=== PATIENT | male | born 1995 | race African-American/Black ===

== ENCOUNTER 2018-01-27 15:44 | Emergency (ER) | payer MEDICAID ==
[~2018-01-27] VITALS: Ht 172.7 cm; Wt 71.5 kg
[2018-01-27 15:48] VITALS: BP 151/79
[2018-01-27 16:22] LABS: MICROSCOPIC AUTO
[2018-01-27 16:25] LABS: CULTURE INDICATED? YES
== END 2018-01-27 17:03 | disposition home or self-care (01) ==
LOC: ED 16:50
DX: R36.1 Hematospermia (principal); F90.9 Attention-deficit hyperactivity disorder, unspecified type
CPT/HCPCS: 81001; 87086; 87491; 87591; 99284

== ENCOUNTER 2018-01-27 20:44 | Emergency (ER) | payer MEDICAID ==
[~2018-01-27] VITALS: Ht 172.7 cm; Wt 71.6 kg
[2018-01-27 21:14] VITALS: BP 126/83
== END 2018-01-27 21:26 | disposition home or self-care (01) ==
LOC: ED 21:22
DX: R31.29 Other microscopic hematuria (principal); R36.1 Hematospermia; F90.9 Attention-deficit hyperactivity disorder, unspecified type; F17.200 Nicotine dependence, unspecified, uncomplicated
CPT/HCPCS: 99281

== ENCOUNTER 2018-03-06 10:24 | Emergency (ER) | payer MEDICAID ==
[~2018-03-06] VITALS: Ht 172.7 cm; Wt 72.2 kg
[2018-03-06 10:25] VITALS: BP 128/73
[2018-03-06] MEDS ORDERED: HYDROcodone/APAP 5/325 TABLET ONE (10:52)
[2018-03-06] MEDS ORDERED: HYDROcodone/APAP 5/325 TABLET PO ONE (11:00)
== END 2018-03-06 11:08 | disposition home or self-care (01) ==
LOC: ED 11:00
DX: K02.9 Dental caries, unspecified (principal); K08.89 Other specified disorders of teeth and supporting structures
CPT/HCPCS: 99283

== ENCOUNTER 2018-03-30 10:40 | Emergency (ER) | payer SELFPAY ==
[~2018-03-30] VITALS: Ht 172.7 cm; Wt 72.1 kg
[2018-03-30 10:48] VITALS: BP 122/79
[2018-03-30] MEDS ORDERED: IBUPROFEN 200 MG TABLET ONE (11:16)
[2018-03-30] MEDS ORDERED: METHOCARBAMOL 750 MG TABLET ONE (11:16)
[2018-03-30] MEDS ORDERED: METHOCARBAMOL 750 MG TABLET PO ONE (11:30)
[2018-03-30] MEDS ORDERED: IBUPROFEN 200 MG TABLET PO ONE (11:30)
== END 2018-03-30 11:51 | disposition home or self-care (01) ==
LOC: ED 11:38
DX: S39.012A Strain of muscle, fascia and tendon of lower back, initial encounter (principal); V49.49XA Driver injured in collision with other motor vehicles in traffic accident, initial encounter; Y93.89 Activity, other specified; Y99.8 Other external cause status; Y92.89 Other specified places as the place of occurrence of the external cause
CPT/HCPCS: 72110; 99284

== ENCOUNTER 2018-07-04 01:09 | Emergency (ER) | payer MEDICAID ==
[~2018-07-04] VITALS: Ht 172.7 cm; Wt 70.0 kg
[2018-07-04 01:11] VITALS: BP 127/84
[2018-07-04] MEDS ORDERED: CEFTRIAXONE 250 MG IM ONE (01:30)
[2018-07-04] MEDS ORDERED: AZITHROMYCIN 500 MG TABLET PO ONE (01:30)
[2018-07-04] MEDS ORDERED: CEFTRIAXONE 250 MG ONE (01:33)
[2018-07-04] MEDS ORDERED: AZITHROMYCIN 500 MG TABLET ONE (01:33)
[2018-07-04 01:54] LABS: MICROSCOPIC NOT IND
[2018-07-04 02:05] LABS: CULTURE INDICATED? NO
== END 2018-07-04 02:05 | disposition home or self-care (01) ==
LOC: ED 01:40
DX: R05 Cough (principal); F90.9 Attention-deficit hyperactivity disorder, unspecified type
CPT/HCPCS: 81003; 87491; 87591; 96372; 99284; J0696

== ENCOUNTER 2018-11-29 10:38 | Emergency (ER) | payer MEDICAID ==
[~2018-11-29] VITALS: Ht 172.7 cm; Wt 69.5 kg
[2018-11-29 10:52] VITALS: BP 132/75
== END 2018-11-29 13:05 | disposition home or self-care (01) ==
LOC: ED 12:55
DX: S16.1XXA Strain of muscle, fascia and tendon at neck level, initial encounter (principal); F90.9 Attention-deficit hyperactivity disorder, unspecified type; R51 Headache; Z87.891 Personal history of nicotine dependence; V49.59XA Passenger injured in collision with other motor vehicles in traffic accident, initial encounter; Y93.89 Activity, other specified; Y92.410 Unspecified street and highway as the place of occurrence of the external cause; Y99.8 Other external cause status
CPT/HCPCS: 70450; 72125; 99284

== ENCOUNTER 2019-02-10 12:02 | Emergency (ER) | payer MEDICAID ==
[~2019-02-10] VITALS: Ht 172.7 cm; Wt 69.9 kg
[2019-02-10 12:06] VITALS: BP 116/69
--- NOTE | 2019-02-10 13:17 | NUR ---
Patient given discharge instructions and they have confirmed that they understand the instructions. Patient ambulatory with steady gait. Pt left with all personal belongings, d/c paperwork, and prescription.
== END 2019-02-10 13:19 | disposition home or self-care (01) ==
LOC: ED 13:10
DX: M79.671 Pain in right foot (principal); M79.672 Pain in left foot; L84 Corns and callosities; Z87.891 Personal history of nicotine dependence
CPT/HCPCS: 99283

== ENCOUNTER 2019-03-02 13:22 | Emergency (ER) | payer MEDICAID ==
[~2019-03-02] VITALS: Ht 170.2 cm; Wt 70.4 kg
[2019-03-02 13:51] VITALS: BP 121/63
[2019-03-02 14:23] LABS: CULTURE INDICATED? YES; MICROSCOPIC INDICATED
--- NOTE | 2019-03-02 15:21 | NUR ---
PT TO ROOM FROM LOBBY, GAIT STEADY
[2019-03-02] MEDS ORDERED: AZITHROMYCIN 500 MG TABLET ONE (15:48)
[2019-03-02] MEDS ORDERED: CEFTRIAXONE 250 MG ONE (15:48)
[2019-03-02] MEDS ORDERED: CEFTRIAXONE 250 MG IM ONE (16:00)
[2019-03-02] MEDS ORDERED: AZITHROMYCIN 500 MG TABLET PO ONE (16:00)
== END 2019-03-02 16:50 | disposition home or self-care (01) ==
LOC: ED 16:06
DX: B37.89 Other sites of candidiasis (principal)
CPT/HCPCS: 36415; 81001; 86592; 86780; 87086; 87491; 87591; 99283

== ENCOUNTER 2019-07-13 13:42 | Emergency (ER) | payer MEDICAID ==
[~2019-07-13] VITALS: Ht 172.7 cm; Wt 73.7 kg
--- NOTE | 2019-07-13 15:30 | NUR ---
CONCRETE PIPE MAKING MACHINE OPERATOR NOTIFIED OF NEED FOR PT TO BE MOVED TO APPROPRIATE ROOM FOR SI PRECAUTIONS. MORE DETAILED NOTE TO FOLLOW.
--- NOTE | 2019-07-13 15:40 | NUR ---
PT PRESENTED TO ED WITH C/O CHRONIC L FOOT PAIN AND SWELLING. ON EXAM BY PA, PT REPORTED SUICIDAL THOUGHTS. ON ASSESSMENT BY THIS RN, PT REPORTED AH-VOICES TELLING HIM A MULTITUDE OF THINGS. PT GAVE EXAMPLES OF MOTHER CALLING HIS NAME, A VOICE SAYING "BELT". PT STATES HE HAS THOUGHTS OF METHODS INCLUDING OD W/MEDICATION, STRANGLING SELF WITH BELT, AND DRIVING INTO TRAFFIC. PT HAS HX OF OD WITH ADDERALL IN 2019. PT CURRENTLY IN [facility] FOR ALCOHOL ABUSE. PRIOR TO THAT, PT INCARCERATED FOR DUI. PT STATES HE'S BEEN SOBER SINCE 05/17/2019 (ALCOHOL), NO DRUG USE. PT IS ASKING FOR PSYCHIATRIC HELP STATING HE HAS DIFFICULTY COPING WITH STRESSORS, INCLUDING MOTHER'S . PT STATES "I'M AFRAID I AM TURNING CRAZY".
--- NOTE | 2019-07-13 16:10 | NUR ---
SW IN TO SEE PT.
--- NOTE | 2019-07-13 17:02 | NUR ---
THOUGHPUT: TELEPSYCH PAGED.
[2019-07-13 17:13] LABS: BASOPHILS # (AUTO) 0.02 x10^3/uL (0-0.1); BASOPHILS % (AUTO) 0 % (0-1); EOSINOPHILS # (AUTO) 0.04 x10^3/uL (0-0.4); EOSINOPHILS % (AUTO) 1 % (1-7); LYMPHOCYTES # (AUTO) 1.96 x10^3/uL (1-3.4); LYMPHOCYTES % (AUTO) 37 % (22-44); MD NO; MEAN CORPUSCULAR HEMOGLOBIN 33.1 pg (27.5-34.5); MEAN CORPUSCULAR HGB CONC 33.9 g/dL (33.2-36.2); MEAN CORPUSCULAR VOLUME 97.5 fL (81-97); MEAN PLATELET VOLUME 9.5 fL (7.4-10.4); MONOCYTES # (AUTO) 0.46 x10^3/uL (0.2-0.8); MONOCYTES % (AUTO) 9 % (2-9); NEUTROPHILS # (AUTO) 2.87 x10^3/uL (1.8-6.8); NEUTROPHILS % (AUTO) 54 % (42-75); PLATELET COUNT 147 x10^3/uL (130-400); RED BLOOD COUNT 4.89 x10^6/uL (4.38-5.82); RED CELL DISTRIBUTION WIDTH 13.8 % (9.4-14.8)
[2019-07-13 17:19] LABS: ANION GAP 4 mmol/L (5-15); CALCIUM 8.8 mg/dL (8.5-10.1); CHLORIDE 109 mmol/L (98-107); CREATININE 0.87 mg/dL (0.7-1.3); SALICYLATE LEVEL < 1.7 mg/dL (2.8-20.0)
--- NOTE | 2019-07-13 17:24 | NUR ---
REPORT TO SOC.
--- NOTE | 2019-07-13 18:09 | NUR ---
SOC RECOMMENDATION FOR LEGAL HOLD-ERP NOTIFIED. PT TO BE MOVED TO CORE ROOM.
--- NOTE | 2019-07-13 18:34 | NUR ---
RN TRANSPORTED PT TO ROOM 1 VIA GURNEY. REPORT FROM [facility]I NEAL. RN COLLECTED PT'S BELONGINGS AND PLACED THEM IN 2/2 PERSONAL BELONGINGS BAG IN LOCKED. SI PRECAUTIONS IMPLEMENTED. SITTER OUTSIDE OF ROOM MONITORING PT. PT REQUESTING FOOD. RN TO ORDER PT DINNER.
--- NOTE | 2019-07-13 18:37 | NUR ---
REPORT TO JOLANTA MIRELES.
--- NOTE | 2019-07-13 18:39 | NUR ---
OKAY BY ADELFO TO ORDER PT DINNER.
--- NOTE | 2019-07-13 18:43 | NUR ---
ROUNDS COMPLETED. PT RESTING. 1:1 AT THE DOOR.
[2019-07-13 18:51] LABS: MICROSCOPIC NOT IND
--- NOTE | 2019-07-13 18:56 | NUR ---
REPORT TO ИРИНА RN TO ASSUME PRIMARY CARE OF PT.
[2019-07-13 19:02] LABS: AMPHETAMINE SCREEN, URINE Negative (Negative); BARBITURATE SCREEN, URINE Negative (Negative); BENZODIAZEPINE SCREEN, URINE Negative (Negative); CANNABINOID SCREEN, URINE Negative (Negative); COCAINE SCREEN, URINE Negative (Negative); METHADONE SCREEN, URINE Negative (Negative); OPIATE SCREEN, URINE Negative (Negative)
[2019-07-13 19:03] LABS: CULTURE INDICATED? NO
--- NOTE | 2019-07-13 19:07 | NUR ---
PT TAKEN A SUPPER MEAL.
[2019-07-13] MEDS ORDERED: QUETIAPINE 100MG TABLET PO ONE ×2 (20:00)
[2019-07-13] MEDS ORDERED: QUETIAPINE 25MG TABLET PO ONE (20:00)
[2019-07-13] MEDS ORDERED: QUETIAPINE 100MG TABLET ONE (20:05)
[2019-07-13] MEDS ORDERED: NEOSPORIN OINT. PKT 1 PACKET ONE (20:06)
[2019-07-13] MEDS ORDERED: CEPHALEXIN 500 MG CAPSULE ONE (20:06)
--- NOTE | 2019-07-13 20:08 | NUR ---
TP RN: [facility] STATES THAT INSURANCE REQUIRES PRIOR AUTHORIZATION WHICH JOLANTA ON 3E "IS NOT TRAINED TO DO". PER JOLANTA, MICHELAY TO FAX PACKET TO APPROPRIATE FACILITIES. PACKET FAXED TO [facility], [facility], AND [facility].
[2019-07-13] MEDS: CLOTRIMAZOLE CRM 1%, 15GM TP SCH (20:10)
[2019-07-13] MEDS: CEPHALEXIN 500 MG CAPSULE PO SCH (20:10)
[2019-07-13] MEDS: MUPIROCIN OINT 2%, 22GM TP SCH (20:10)
--- NOTE | 2019-07-13 20:11 | NUR ---
SEROQUEL 50 MG PO TONIGHT, 100 MG PO ON 07/14/19 150 MG PO ON 07/15/19. LOTRIMIN TO START IN THE AM FOR L FT FIFTH DIGIT. ATB OINT APPLIED TO THE L FT FIFTH DIGIT.
--- NOTE | 2019-07-13 20:21 | NUR ---
1:1 AT THE DOOR.
--- NOTE | 2019-07-13 21:24 | NUR ---
IN BED. RESP EVEN. NO DISTRESS. 1:1 AT DOOR.
--- NOTE | 2019-07-13 23:31 | NUR ---
IN BED. RESP EVEN. NO DISTRESS. 1:1 AT DOOR.
--- NOTE | 2019-07-14 00:43 | NUR ---
IN BED. RESP EVEN. NO DISTRESS. 1:1 AT DOOR.
--- NOTE | 2019-07-14 01:21 | NUR ---
BREAK RN: PT SLEEPING. RESPIRATIONS EVEN AND UNLABORED. SITTER OUTSIDE DOOR MONITORING PT. WILL CONTINUE TO MONITOR.
--- NOTE | 2019-07-14 02:05 | NUR ---
IN BED. RESP EVEN. NO DISTRESS. 1:1 AT DOOR.
--- NOTE | 2019-07-14 03:46 | NUR ---
IN BED. RESP EVEN. NO DISTRESS. 1:1 AT DOOR.
--- NOTE | 2019-07-14 04:47 | NUR ---
IN BED. RESP EVEN. NO DISTRESS. 1:1 AT DOOR. BREAKFAST TRAY ORDERED.
--- NOTE | 2019-07-14 05:55 | NUR ---
IN BED. RESP EVEN. NO DISTRESS. 1:1 AT DOOR. NO ADVERSE BEHAVIORS DEMONSTRATED THIS SHIFT AND HAS HAD NO C/O OR VERB ANY CONCERNS.
--- NOTE | 2019-07-14 06:54 | NUR ---
RECEIVED REPORT FROM ИРИНА. PT CALMLY SLEEPING ON GURNEY, NAD WITH EQUAL CHEST RISE/FALL, NO NEEDS AT THIS TIME, PT REMAINS IN SAFE ENVIRONMENT, SITTER IN VIEW.
[2019-07-14] MEDS ORDERED: CEPHALEXIN 500 MG CAPSULE ONE ×4 (07:46→20:26)
[2019-07-14] MEDS: CEPHALEXIN 500 MG CAPSULE PO SCH ×4 (07:48→21:00)
--- NOTE | 2019-07-14 08:00 | NUR ---
PT LAYING ON GURNEY WITH EYES CLOSED, RESPONDS APPROP TO STAFF, NAD, COMFORT MEASURES PROVIDED INCL MEAL TRAY GIVEN, PT REMAINS IN SAFE ENVIRONMENT, SITTER IN VIEW. Addendum: 07/14/19 at 0818 by PILAR PT LAYING ON GURNEY WITH EYES CLOSED, PT CALM, COOPERATIVE & RESPONDS APPROP TO STAFF, NAD, COMFORT MEASURES PROVIDED INCL MEAL TRAY GIVEN, PT REMAINS IN SAFE ENVIRONMENT, SITTER IN VIEW.
[2019-07-14] MEDS ORDERED: NEOSPORIN OINT. PKT 1 PACKET ONE (09:03)
[2019-07-14] MEDS: CLOTRIMAZOLE CRM 1%, 15GM TP SCH ×2 (09:05→21:00)
[2019-07-14] MEDS: MUPIROCIN OINT 2%, 22GM TP SCH ×3 (09:05→21:00)
--- NOTE | 2019-07-14 09:05 | NUR ---
PT CONTINUES LAYING ON GURNEY WATCHING TV, RESPONDS APPROP TO STAFF, NAD, COMFORT MEASURES PROVIDED- ATE 100% OF BREAKFAST, PT REMAINS IN SAFE ENVIRONMENT, SITTER IN VIEW.
--- NOTE | 2019-07-14 09:59 | NUR ---
PT LAYING ON GURNEY WATCHING TV, CALM & COOPERATIVE, RESPONDS APPROP TO STAFF, NAD, COMFORT MEASURES PROVIDED, PT REMAINS IN SAFE ENVIRONMENT, SITTER IN VIEW.
--- NOTE | 2019-07-14 11:00 | NUR ---
PT CONTINUES LAYING ON GURNEY WATCHING TV, ABLE TO DOZEE OFF AT TIMES, RESPONDS APPROP TO STAFF, NAD, COMFORT MEASURES PROVIDED, PT REMAINS IN SAFE ENVIRONMENT, SITTER IN VIEW. Addendum: 07/14/19 at 1102 by PILAR PT CONTINUES LAYING ON GURRocket Design WATCHING TV, ABLE TO DOZE OFF AT TIMES, RESPONDS APPROP TO STAFF, NAD, COMFORT MEASURES PROVIDED, PT REMAINS IN SAFE ENVIRONMENT, SITTER IN VIEW.
--- NOTE | 2019-07-14 12:00 | NUR ---
PT LAYING ON GURNEY WATCHING TV, CALM & COOPERATIVE, ABLE TO DOZE OFF, RESPONDS APPROP TO STAFF, NAD, COMFORT MEASURES PROVIDED, PT REMAINS IN SAFE ENVIRONMENT, SITTER IN VIEW.
--- NOTE | 2019-07-14 12:03 | NUR ---
MEAL TRAY GIVEN
--- NOTE | 2019-07-14 13:45 | NUR ---
REPORT RECEIVED. PT. REMAINS CALM AND COOPERATIVE. VSS. PT.'S ROOM IS SECURED WITH THE SITTER OUTSIDE. PT. FINISHED HIS LUNCH AT THIS TIME.
--- NOTE | 2019-07-14 15:24 | NUR ---
NO CHANGES AT THIS TIME.
--- NOTE | 2019-07-14 16:30 | NUR ---
TASK RN- PTRESTING ON NOE IN SEECURED ROOM. SITTER IN PLACE. MEDICATED PER ORDER. PT STATES HE WANTS TO WAIT TO APPLY BACTROBAN OINTMENT UNTIL LATER. NADN. RESP EVEN AND UNLABORED.
--- NOTE | 2019-07-14 17:35 | NUR ---
PT. WAS GIVEN A MEAL TRAY AND APPLE JUICE AT HIS REQUEST.
--- NOTE | 2019-07-14 18:26 | NUR ---
PT.'S FRIEND IS AT THE BEDSIDE.
--- NOTE | 2019-07-14 19:04 | NUR ---
REPORT GIVEN TO VELASQUEZ MIRELES.
--- NOTE | 2019-07-14 19:48 | NUR ---
Recieved report. Introduced self to patient. Assumed patient care.
[2019-07-14] MEDS ORDERED: QUETIAPINE 100MG TABLET ONE (20:56)
[2019-07-14] MEDS ORDERED: QUETIAPINE 100MG TABLET PO SCH (21:00)
--- NOTE | 2019-07-14 21:06 | NUR ---
RN to bedside, administered medications per orders. Informed patient unlikely to be able to have extra staff member able to provide shower per hospital protocol. Patient verbalized understanding.
[2019-07-15] MEDS ORDERED: CEPHALEXIN 500 MG CAPSULE ONE ×2 (05:44→09:06)
[2019-07-15] MEDS: CEPHALEXIN 500 MG CAPSULE PO SCH ×2 (05:59→11:00)
--- NOTE | 2019-07-15 06:31 | NUR ---
RN to bedside, patient sleeping all night. Aroused for morning medications and blood pressures. VSS, sitter within view of patient.
--- NOTE | 2019-07-15 06:52 | NUR ---
Gave report to [facility] Chahal. Covered plan of care. Awaiting placement.
--- NOTE | 2019-07-15 06:55 | NUR ---
Receieved bedside report from [facility]I Cowan. All questions answered. Assuming care of pt at this time. Pt resting on gurney with eyes closed on right lateral side. Room remains secured for SI and HI. Sitter near doorway in direct line of sight for observation. NADN. No needs expressed at this time.
--- NOTE | 2019-07-15 07:03 | NUR ---
Called and requested hospital bed from housekeeping.
--- NOTE | 2019-07-15 08:54 | NUR ---
Provided report to CHI Sandhu at [facility]. All questions answered. CHI Sandhu to call back with accepting .
[2019-07-15 08:55] VITALS: BP 122/68
--- NOTE | 2019-07-15 08:57 | NUR ---
Pt provided breakfast tray and hospital bed. Pt ambulates to restroom with steady gait and balance. Pt polite and cooperative with ED staff. NADN. No needs expressed at this time. Sitter near doorway in direct line of sight for observation.
[2019-07-15] MEDS ORDERED: BUPROPION SR 100 MG TABLET PO SCH (09:00)
[2019-07-15] MEDS: CLOTRIMAZOLE CRM 1%, 15GM TP SCH (09:14)
[2019-07-15] MEDS: MUPIROCIN OINT 2%, 22GM TP SCH (09:14)
--- NOTE | 2019-07-15 10:46 | NUR ---
Pt sitting on hospital bed with lights off watching TV. No needs expressed. Sitter near doorway in direct line of sight for observation. GRACE.
--- NOTE | 2019-07-15 11:09 | NUR ---
Pt provided medication per EMAR. Pt appreciative. NADN. No needs expressed at this time.
--- NOTE | 2019-07-15 11:50 | NUR ---
LUNCH RN: SALESPERSON HOSIERY VISIT COMPLETED, HOLD IS TO BE CONTINUED. PT TO BE TRANSFERED TO [facility]. CURRENTLY SLEEPING IN BED, FLUIDS AT BEDSIDE. SITTER IN NEELY FOR CONTINUOUS MONITORING
--- NOTE | 2019-07-15 12:02 | NUR ---
LUNCH RN: LUNCH TRAY DELIVERED. PT CALM AND COOPERATIVE AT THIS TIME EATING IN BED. ALL NEEDS MET AT THIS TIME
--- NOTE | 2019-07-15 12:11 | NUR ---
Pt resting on hospital bed eating lunch tray watching TV. No needs requested. Sitter near doorway in direct line of sight for observation.
--- NOTE | 2019-07-15 12:31 | NUR ---
[facility] arrived to transport pt to [facility]. Two personal belonging bags with labels removed from ED locker and provided to [facility].
--- NOTE | 2019-07-15 12:35 | NUR ---
Pt ambulates with steady gait and balance from ED room to ambulance with [facility] to transport to [facility]. [facility]. Pt left with two personal belonging bags labled from ED locker. No needs requested.
== END 2019-07-15 12:41 ==
LOC: ED 15:30
DX: F28 Other psychotic disorder not due to a substance or known physiological condition (principal); L03.116 Cellulitis of left lower limb; B35.3 Tinea pedis; F17.200 Nicotine dependence, unspecified, uncomplicated
CPT/HCPCS: 36415; 80048; 80307; 81003; 82040; 85025; 99284; 99285

== ENCOUNTER 2020-08-11 15:17 | Emergency (ER) | payer MEDICAID ==
[~2020-08-11] VITALS: Ht 172.7 cm; Wt 75.4 kg
[2020-08-11 15:46] VITALS: BP 124/70
== END 2020-08-11 16:55 | disposition home or self-care (01) ==
LOC: ED 16:30
DX: B43.9 Chromomycosis, unspecified (principal); M79.10 Myalgia, unspecified site; R11.0 Nausea
CPT/HCPCS: 99282

== ENCOUNTER 2021-01-30 12:59 | Emergency (ER) | payer MEDICAID ==
[~2021-01-30] VITALS: Ht 172.7 cm; Wt 68.4 kg
[2021-01-30] MEDS ORDERED: LORazepam 2 MG/ML, 1ML IV STA (13:24)
[2021-01-30] MEDS ORDERED: ONDANSETRON 2MG/ML, 2ML IVPush ONE (13:30)
[2021-01-30] MEDS ORDERED: SODIUM CHLORIDE 0.9% 1,000ML IVBOLUS ONE (13:30)
[2021-01-30] MEDS ORDERED: THIAMINE 100MG TABLET PO ONE (13:30)
[2021-01-30] MEDS ORDERED: SODIUM CHLORIDE FLUSH 10ML SYR IVF ONE (13:30)
[2021-01-30 13:42] LABS: BASOPHILS % (AUTO) 1 % (0-1); EOSINOPHILS % (AUTO) 0 % (1-7); LYMPHOCYTES % (AUTO) 20 % (22-44); MEAN CORPUSCULAR HEMOGLOBIN 35.4 pg (27.5-34.5); MEAN CORPUSCULAR HGB CONC 35.4 g/dL (33.2-36.2); MONOCYTES % (AUTO) 9 % (2-9); NEUTROPHILS % (AUTO) 70 % (42-75); PLATELET COUNT 161 x10^3/uL (130-400); RED BLOOD COUNT 4.61 x10^6/uL (4.38-5.82); RED CELL DISTRIBUTION WIDTH 13.1 % (9.4-14.8)
[2021-01-30 13:45] LABS: MD NO
[2021-01-30 13:52] LABS: ALANINE AMINOTRANSFERASE 67 U/L (12-78); ALBUMIN 4.6 g/dL (3.4-5.0); ANION GAP 10 mmol/L (5-15); CALCIUM 9.8 mg/dL (8.5-10.1); CHLORIDE 104 mmol/L (98-107); CREATININE 0.93 mg/dL (0.7-1.3)
[2021-01-30 13:54] LABS: ALKALINE PHOSPHATASE 85 U/L (45-117); BILIRUBIN,TOTAL 4.3 mg/dL (0.2-1.0); TOTAL PROTEIN 8.1 g/dL (6.4-8.2)
--- NOTE | 2021-01-30 14:15 | NUR ---
PT LAYING ON ABDOMEN IN BED WITH LEGS HANGING OFF GURNEY. PT STATED HE IS COMFORTABLE LIKE THIS AND DID NOT WANT TO REPOSITION SELF. WILL CONTINUE TO MONITOR.
[2021-01-30] MEDS ORDERED: ONDANSETRON 2MG/ML, 2ML ONE (14:30)
[2021-01-30] MEDS ORDERED: THIAMINE 100MG TABLET ONE (14:30)
--- NOTE | 2021-01-30 14:55 | NUR ---
PT REFUSED IV PLACEMENT AND MEDS. STATED HE JUST WANTS THE DETOX PILL SO HE CAN GO HOME AND SLEEP. PT INFORMED WE MAY NOT HAVE THAT HERE. PT STATED HE WILL CALL HIS GIRLFRIEND AND GET THE NAME OF THE PILL. ERP AWARE OF SITUATION.
[2021-01-30] MEDS ORDERED: LORazepam 1MG TABLET PO ONE (15:00)
[2021-01-30] MEDS ORDERED: LORazepam 1MG TABLET ONE (15:29)
[2021-01-30 15:35] VITALS: BP 111/76
== END 2021-01-30 15:40 | disposition home or self-care (01) ==
LOC: ED 15:25
DX: F10.139 Alcohol abuse with withdrawal, unspecified (principal); Y90.0 Blood alcohol level of less than 20 mg/100 ml
CPT/HCPCS: 36415; 80053; 80320; 83690; 85025; 99283; G0480